=== PATIENT | male | born 1965 | race Caucasian/White ===

== ENCOUNTER 2020-04-03 07:36 | Outpatient (CLI) | payer BC, SELFPAY ==
[2020-04-03 07:58] LABS: Hematocrit 45.5 % (42.0-52.0); Hemoglobin 15.2 g/dL (14.0-18.0); Mean Corpuscular HGB Conc 33.4 g/dl (32-36); Mean Corpuscular Volume 92.9 fl (80-100); Mean Platelet Volume 8.4 fl (7.4-10.4); Platelet Count Result 321 k/mm3 (150-375); Red Cell Distribution Width 13.2 % (11.5-14.5); White Blood Count 8.6 K/mm3 (4.5-10.0)
[2020-04-03 08:16] LABS: Alanine Aminotransferase 20 U/L (4-50); Albumin Level 4.6 g/dL (3.5-5.1); Alkaline Phosphatase 86 U/L (38-126); Anion Gap 12.7 mmol/L (7-16); Aspartate Amino Transferase 25 U/L (17-59); Bilirubin,Total 0.6 mg/dL (0.2-1.3); Blood Urea Nitrogen 11 mg/dL (9-20); Calcium 9.6 mg/dL (8.4-10.2); Carbon Dioxide 29 mmol/L (22-30); Chloride 103 mmol/L (98-107); Cholesterol 215 mg/dL (0-200); Estimated Glomerular Filt Rate > 60; Glucose 91 mg/dL (75-110); HDL Direct 76 mg/dL; Potassium 4.7 mmol/L (3.4-5.0); Sodium 140 mmol/L (137-145); Triglycerides 90 mg/dL (<150)
[2020-04-03 08:27] LABS: LDL Cholesterol Direct 108 mg/dL
== END 2020-04-03 07:37 | disposition home or self-care (01) ==
PROVIDERS: PCP Internal Medicine; Visit Provider Physician Assistant
DX: I10 Essential (primary) hypertension (principal)
CPT/HCPCS: 36415; 80053; 80061; 84443; 85027

== ENCOUNTER 2020-06-25 10:34 | Outpatient (CLI) | payer BC, SELFPAY ==
[2020-06-25 11:06] LABS: Add Urine Microscopic? NO; Appearance Urine Clear (Clear); Bilirubin Urine Negative (Negative); Blood Urine Negative (Negative); Color Urine Yellow (Yellow); Glucose Urine UA Negative (Negative); Ketones Urine Negative (Negative); Leukocyte Esterase Ur Negative LEU/UL (NEGATIVE); Nitrate Urine Negative (Negative); Protein Urine Negative (Negative); Specific Grav Ur 1.011 (1.001-1.035); Urobilinogen Urine Negative mg/dL (<2.0)
== END 2020-06-25 10:35 | disposition home or self-care (01) ==
LOC: ANHLAB 10:36
PROVIDERS: PCP Physician Assistant; Visit Provider Physician Assistant
DX: R10.9 Unspecified abdominal pain (principal)
CPT/HCPCS: 81003; 87086

== ENCOUNTER 2020-09-02 09:30 | Emergency (ER) | payer BC, SELFPAY ==
--- NOTE | ~2020-09-02 | XR_ITS ---
EXAMINATION: XR chest 1V portable EXAM DATE: 09/02/2020 10:57 INDICATION: Fever and cough. TECHNIQUE: Portable AP frontal chest x-ray was obtained. There is no prior study for comparison. FINDINGS: Small amount of right basilar atelectasis or infection. The lungs are otherwise clear. The re are no pleural effusions. The cardiomediastinal silhouette is within normal limits. There is no pneumothorax suspected. The bones and soft tissues are unremarkable. IMPRESSION: Small amount of right basilar atelectasis or infection. Reviewed, dictated and finalized at location A. OND SAWER
[2020-09-02 09:40] VITALS: BP 140/97; PULSE 83; RESP 16; TEMP 36.3; O2SAT 97
--- NOTE | 2020-09-02 10:25 | ED.FEVER ---
HPI - Fever General Chief Complaint: Fever <ANJU Dallas Last Filed: 09/02/20 11:20> Stated Complaint: LOW GRADE FEVER FOR 11 DAYS <ANJU Dallas Last Filed: 09/02/20 11:20> Time Seen by Provider: 09/02/20 10:07 <ANJU Dallas Last Filed: 09/02/20 11:20> Source: patient <ANJU Dallas Last Filed: 09/02/20 11:20> Mode of arrival: ambulatory <ANJU Dallas Last Filed: 09/02/20 11:20> Limitations: no limitations <ANJU Dallas Last Filed: 09/02/20 11:20> History of Present Illness HPI Narrative: This is a 54-year-old male that presents the emergency department for intermittent fevers over the last 11 days. Reports his temperature is mostly 99. It has gotten up to 100.1. Reports over the last couple of days he is also noted a cough. Denies sore throat, chest pain, shortness of breath, abdominal pain, vomiting, or dysuria. <ANJU Dallas Last Filed: 09/02/20 11:20> Related Data Allergies/Adverse Reactions: Allergies Allergy/AdvReac Type Severity Reaction Status Date / Time No Known Allergies Allergy Verified 06/29/20 13:55 <ANJU Dallas Last Filed: 09/02/20 11:20> Review of Systems Review of Systems: Narrative: CONSTITUTIONAL: Reports fever ENT: Denies sore throat CARDIOVASCULAR: Denies chest pain RESPIRATORY: Reports cough. Denies dyspnea. GASTROINTESTINAL: Denies abdominal pain, nausea, vomiting SKIN: Reports rash and itching GENITOURINARY: Denies dysuria <ANJU Dallas Last Filed: 09/02/20 11:20> All systems reviewed & are unremarkable except as noted in HPI and below <ANJU Dallas Last Filed: 09/02/20 11:20> [facility] Surgical History Surgical History: Surgical History (Updated 12/24/20 @ 10:25 by Carey Garcia PA-C) History of hernia repair <Carey Garcia PA-C - Last Filed: 09/02/20 11:20> Family History Family History: Family History Mother Depression Hypertension Family history of dementia, Onset Age: 77 Patient's mother is , Onset Age: 77 Father Family history of malignant neoplasm Family history of lung cancer, Onset Age: 82 Patient's father is , Onset Age: 82 <Carey Garcia PA-C - Last Filed: 09/02/20 11:20> Social History Social History: Social History Smoking status: Never smoker Second hand tobacco smoke exposure: No Alcohol intake: current Drinks per week: 50 Substance use: never <Carey Garcia PA-C - Last Filed: 09/02/20 11:20> Exam Narrative: Exam Narrative: GENERAL: Well-appearing, well-nourished, and in no acute distress. HEAD: Normocephalic, atraumatic. EYES: EOMI. ENT: Nares clear, no rhinorrhea or epistaxis. Mucous membranes moist. Oropharynx without tonsillar hypertrophy exudate or other lesions. Bilateral TMs pearly blackburn non-bulging NECK: Supple. No adenopathy or masses. CHEST: Clear to auscultation. No respiratory distress. No wheezes rales or rhonchi HEART: Regular rate and rhythm. No murmur heard. Normal peripheral pulses. ABDOMEN: Soft, nontender, nondistended, normal active bowel sounds. BACK: Mild red, papular rash noted to the upper back with excoriations EXTREMITIES: Normal range of motion. No edema. SKIN: Warm, dry, no rash. NEURO: No focal deficits. Alert and oriented x3. PSYCH: Normal mood and affect <Carey Garcia PA-C - Last Filed: 09/02/20 11:20> Course Vital Signs Vital signs: Vital Signs Temperature 97.3 F L 09/02/20 09:40 Pulse Rate 83 09/02/20 09:40 Respiratory Rate 16 12/24/20 09:40 Blood Pressure 140/97 H 09/02/20 09:40 Pulse Oximetry 97 09/02/20 09:40 Temperature 97.3 F L 09/02/20 09:40 Pulse Rate 83 09/02/20 09:40 Respiratory Rate 16 09/02/20 09:40 Blood Pressure 140/9
[2020-09-02 17:51] LABS: SARS-CoV-2 RNA PCR Positive
== END 2020-09-02 12:05 | disposition home or self-care (01) ==
PROVIDERS: Physician Assistant; Emergency Provider General Practice; PCP Internal Medicine
DX: U07.1 COVID-19 (principal); J12.89 Other viral pneumonia
CPT/HCPCS: 71045; 87635; 87804; 99283; C9803; U0003

== ENCOUNTER 2024-07-30 07:29 | Outpatient (CLI) | payer BC, SELFPAY ==
[2024-07-30 08:45] LABS: Hematocrit 46.8 % (42.0-52.0); Hemoglobin 15.8 g/dL (14.0-18.0); Mean Corpuscular HGB Conc 33.8 g/dl (32-36); Mean Corpuscular Hemoglobin 32.1 pg (26-34); Mean Corpuscular Volume 95.1 fl (80-100); Mean Platelet Volume 8.8 fl (7.4-10.4); Platelet Count Result 310 k/mm3 (150-375); Red Blood Count 4.92 M/mm3 (4.6-6.20); Red Cell Distribution Width 13.2 % (11.5-14.5); White Blood Count 8.8 K/mm3 (4.5-10.0)
[2024-07-30 12:08] LABS: Alanine Aminotransferase 29 U/L (6-50); Albumin Level 4.4 g/dL (3.5-5.1); Alkaline Phosphatase 73 U/L (38-126); Anion Gap 8 mmol/L (4-12); Aspartate Amino Transferase 33 U/L (17-59); Bilirubin,Total 0.9 mg/dL (0.2-1.3); Blood Urea Nitrogen 13 mg/dL (9-20); Calcium 9.5 mg/dL (8.4-10.2); Carbon Dioxide 28 mmol/L (22-30); Chloride 102 mmol/L (98-107); Cholesterol 266 mg/dL (0-200); Estimated Glomerular Filt Rate > 60; Glucose 87 mg/dL (65-110); HDL Direct 69 mg/dL; Potassium 4.4 mmol/L (3.4-5.0); Sodium 138 mmol/L (137-145); Triglycerides 126 mg/dL (<150)
[2024-07-30 12:18] LABS: LDL Cholesterol Direct 143 mg/dL
[2024-07-30 12:38] LABS: Prostate Specific Antigen 0.7 ng/mL (< OR = 4.0)
== END 2024-07-30 07:30 | disposition home or self-care (01) ==
LOC: ANHLAB 07:32
PROVIDERS: PCP Physician Assistant; Visit Provider Nurse Practitioner
DX: Z00.00 Encounter for general adult medical examination without abnormal findings (principal); Z12.5 Encounter for screening for malignant neoplasm of prostate
CPT/HCPCS: 36415; 80053; 80061; 84153; 84443; 85027; G0103

== ENCOUNTER 2024-09-18 09:49 | Outpatient (CLI) | payer BC, SELFPAY ==
--- NOTE | ~2024-09-18 | US_ITS ---
US arterial ankle brachial ind INDICATION: Peripheral vascular disease TECHNIQUE: Segmental pressures and plethysmographic and Doppler waveforms of the brachial and lower e xtremity arteries were obtained. COMPARISON: None. FINDINGS: Right and left brachial artery pressures of 154 mm Hg and 164 mm Hg, respectively, are concordant (no rmal difference <= 30 mmHg). The right ankle-brachial index (MARCOS) is 1.13 (normal >= 0.9-1.0). The right great toe-brachial index (TBI) is 0.77 (normal >= 0.60). The left MARCOS is 1.15. The left TBI is 0.65. IMPRESSION: 1. Normal ankle-brachial indices. Reviewed, dictated and finalized at location B. [facility]
== END 2024-09-18 09:50 | disposition home or self-care (01) ==
PROVIDERS: PCP Physician Assistant; Visit Provider Nurse Practitioner
DX: I73.9 Peripheral vascular disease, unspecified (principal)
CPT/HCPCS: 93922